=== PATIENT | female | born 2000 | race African-American/Black ===

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

== ENCOUNTER 2022-04-17 18:18 | Emergency (ER) | payer OTHER ==
[~2022-04-17] VITALS: Ht 157.5 cm; Wt 57.0 kg
[2022-04-17 18:39] VITALS: BP 118/76
== END 2022-04-17 21:30 | disposition left against medical advice (07) ==
LOC: ER 18:18
DX: Z53.21 Procedure and treatment not carried out due to patient leaving prior to being seen by health care provider (principal)